=== PATIENT | female | born 1960 | race Caucasian/White ===

== ENCOUNTER 2017-12-22 12:13 | Inpatient (IN) | payer OTHER ==
[~2017-12-22 12:13] MED LIST: SUCCINYLCHOLINE CHLORIDE 100 MG/5 ML SYG IV
[2017-12-22] MEDS: VANCOMYCIN 1 GM 250 ML IVPB (13:43)
[2017-12-22] MEDS ORDERED: BISACODYL 10 MG SUPP PR (14:30)
[2017-12-22] MEDS ORDERED: VANCOMYCIN 1 GM (PMX) 250 ML IVPB (14:30)
[2017-12-22] MEDS ORDERED: NALOXONE (0.4 MG/ML) INJ IV (14:30)
[2017-12-22] MEDS ORDERED: AL HYDROX/MG HYDROX/SIMETH 30 ML CUP PO (14:30)
[2017-12-22] MEDS: VENLAFAXINE 75 MG TABLET PO (14:30)
[2017-12-22] MEDS: TOPIRAMATE 100 MG TAB PO ×2 (14:30→21:33)
[2017-12-22] MEDS ORDERED: CEPASTAT LOZENGE MT (14:30)
[2017-12-22] MEDS ORDERED: ONDANSETRON 4 MG INJ IV (14:30)
[2017-12-22] MEDS ORDERED: DIPHENHYDRAMINE 50 MG INJ IV (14:30)
[2017-12-22] MEDS ORDERED: GELATIN SIZE 100 SPONGE (14:35)
[2017-12-22] MEDS ORDERED: GLYCOPYRROLATE 0.4 MG INJ (14:58)
[2017-12-22] MEDS ORDERED: DEXAMETHASONE 4 MG/ML 1 ML INJ (14:58)
[2017-12-22] MEDS ORDERED: PROPOFOL 20 ML (14:58)
[2017-12-22] MEDS ORDERED: ROCURONIUM 50 MG INJ (14:58)
[2017-12-22] MEDS ORDERED: NEOSTIGMINE 3 MG/3 ML SYRINGE (14:58)
[2017-12-22] MEDS ORDERED: MIDAZOLAM 1 MG/ML 2 ML INJ (14:58)
[2017-12-22] MEDS ORDERED: ONDANSETRON 4 MG INJ (14:58)
[2017-12-22] MEDS ORDERED: CEFAZOLIN 1 GM INJ (14:58)
[2017-12-22] MEDS ORDERED: LABETALOL HCL 20MG INJ (15:30)
[2017-12-22] MEDS: BUPIVACAINE 0.25%/EPI (SDV) 30 ML INJ (15:54)
[2017-12-22] MEDS: CA CHLORIDE 10% 10 ML SYRINGE (15:54)
[2017-12-22] MEDS: THROMBIN 5000 UNIT VIAL (15:55)
[2017-12-22] MEDS: HEPARIN 1000 UNITS/ML 10 ML INJ (15:55)
[2017-12-22] MEDS: SURGIFOAM POWDER 1 GM KIT (15:55)
[2017-12-22] MEDS: POLYMYXIN/BACITRACIN 1L IRRIG IRR (15:56)
[2017-12-22] MEDS ORDERED: ALBUTEROL 0.083% (NEB) 2.5 MG/3 ML AMP HHN (16:00)
[2017-12-22] MEDS ORDERED: hydrALAzine 20 MG INJ IV (16:00)
[2017-12-22] MEDS ORDERED: IPRATROPIUM (NEB) 0.5 MG/2.5 ML AMP HHN (16:00)
[2017-12-22] MEDS ORDERED: LABETALOL HCL 20MG INJ IV (16:00)
[2017-12-22] MEDS ORDERED: HYDROmorphONE (0.2 MG/ML) 10ML SYG IV ×3 (16:00)
[2017-12-22] MEDS ORDERED: FENTAnyl 50 MCG/ML VIAL IV ×3 (16:00)
[2017-12-22] MEDS ORDERED: MIDAZOLAM 1 MG/ML 2 ML INJ IV (16:00)
[2017-12-22] MEDS ORDERED: MEPERIDINE 25 MG INJ IV (16:00)
[2017-12-22] MEDS ORDERED: TRIMETHOBENZAMIDE 100 MG/ML VIAL IM (16:00)
[2017-12-22] MEDS ORDERED: EPHEDrine SULFATE 50 MG/5 ML SYG IV (16:00)
[2017-12-22] MEDS ORDERED: SUGAMMADEX SODIUM 200 MG/2 ML VIAL IV (16:36)
[2017-12-22] MEDS: LACTATED RINGER'S 1,000 ML IV* (16:48)
[2017-12-22] MEDS: DIPHENHYDRAMINE 50 MG INJ IV (16:53)
[2017-12-22] MEDS: HYDROmorphONE 0.2 MG/ML PCA IV ×2 (16:56→22:12)
[2017-12-22] MEDS: ONDANSETRON 4 MG INJ IV (17:09)
[2017-12-22] MEDS: ACETAMINOPHEN 325 MG TAB PO (17:10)
[2017-12-22] MEDS ORDERED: [UNRECOGNIZED DRUG - REMARK] XX (18:00)
[2017-12-22] MEDS: D5W-0.45 NACL + KCL 20 MEQ 1,000 ML IV (18:39)
[2017-12-22] MEDS: CARISOPRODOL 350 MG TAB PO (20:10)
[2017-12-22] MEDS: traZODone 100 MG TAB PO ×2 (21:00→21:34)
[2017-12-22] MEDS: VENLAFAXINE (XR) 75 MG CAP PO (21:33)
[2017-12-22] MEDS: QUETIAPINE 100 MG TAB PO (21:34)
[2017-12-22] MEDS: DOCUSATE SODIUM 100 MG CAP PO (21:34)
[2017-12-22] MEDS: oxyCODONE (CR) 15 MG TAB [oxyCONTIN] PO (21:34)
[2017-12-23] MEDS: D5W-0.45 NACL + KCL 20 MEQ 1,000 ML IV ×3 (00:03→20:03)
[2017-12-23] MEDS ORDERED: VANCOMYCIN 1 GM (PMX) 250 ML IVPB (01:00)
[2017-12-23] MEDS: HYDROmorphONE 0.2 MG/ML PCA IV (03:31)
[2017-12-23] MEDS: CARISOPRODOL 350 MG TAB PO ×2 (04:55→12:30)
[2017-12-23 05:07] LABS: ADD MAN DIFF? NO
[2017-12-23 05:12] LABS: BASOPHILS % 0.1 % (0.0-2.0); HEMATOCRIT 38.6 % (37.0-47.0); HEMOGLOBIN 13.1 g/dl (12.0-16.0); LYMPHOCYTES # 1.3 10^3/ul (0.8-2.9); LYMPHOCYTES % 8.8 % (15.0-51.0); MEAN CORPUSCULAR HEMOGLOBIN 31.5 pg (29.0-33.0); MEAN CORPUSCULAR HGB CONC 33.9 g/dl (32.0-37.0); MEAN CORPUSCULAR VOLUME 92.8 fl (82.0-101.0); MEAN PLATELET VOLUME 8.6 fl (7.4-10.4); MONOCYTE # 1.1 10^3/ul (0.3-0.9); MONOCYTES % 7.7 % (0.0-11.0); NEUTROPHILS % 82.9 % (39.0-77.0); PLATELET COUNT 303 10^3/UL (140-415); RED BLOOD COUNT 4.16 10^6/ul (4.20-5.40); RED CELL DISTRIBUTION WIDTH 12.9 % (11.5-14.5)
[2017-12-23 05:12] LABS: WHITE BLOOD COUNT 14.5 10^3/ul (4.8-10.8)
[2017-12-23 05:25] LABS: ANION GAP 17 (8-16); BLOOD UREA NITROGEN 10 mg/dl (7-20); CALCIUM 8.8 mg/dl (8.4-10.2); CARBON DIOXIDE 22 mmol/L (21-31); CHLORIDE 109 mmol/L (97-110); CREATININE 0.79 mg/dl (0.44-1.00); GLUCOSE 127 mg/dl (70-220); POTASSIUM 4.2 mmol/L (3.5-5.1); SODIUM 144 mmol/L (135-144)
[2017-12-23] MEDS: LEVOTHYROXINE 112 MCG TAB PO (06:05)
[2017-12-23] MEDS: QUETIAPINE 100 MG TAB PO ×2 (08:53→20:32)
[2017-12-23] MEDS: DOCUSATE SODIUM 100 MG CAP PO ×2 (08:53→20:32)
[2017-12-23] MEDS: TOPIRAMATE 100 MG TAB PO ×2 (08:54→20:31)
[2017-12-23] MEDS: CYANOCOBALAMIN 500 MCG TAB PO (08:54)
[2017-12-23] MEDS: oxyCODONE (CR) 15 MG TAB [oxyCONTIN] PO ×2 (08:54→20:32)
[2017-12-23] MEDS ORDERED: VENLAFAXINE (XR) 75 MG CAP PO (09:00)
[2017-12-23] MEDS: OXYCODONE/ACETAMINOPHEN (10/325) TAB PO (13:45)
[2017-12-23] MEDS: CHOLECALCIFEROL 2,000 UNIT CAP GTB (13:45)
[2017-12-23] MEDS: KETOROLAC 30 MG INJ IV (17:38)
[2017-12-23] MEDS: traZODone 100 MG TAB PO ×2 (20:32→20:33)
[2017-12-23] MEDS: VENLAFAXINE (XR) 75 MG CAP PO (20:32)
[2017-12-24] MEDS: OXYCODONE/ACETAMINOPHEN (10/325) TAB PO ×4 (02:06→23:32)
[2017-12-24 05:16] LABS: ADD MAN DIFF? NO
[2017-12-24] MEDS: LEVOTHYROXINE 112 MCG TAB PO (05:19)
[2017-12-24] MEDS: CARISOPRODOL 350 MG TAB PO ×2 (05:19→14:56)
[2017-12-24] MEDS: D5W-0.45 NACL + KCL 20 MEQ 1,000 ML IV ×2 (05:21→16:03)
[2017-12-24 05:26] LABS: BASOPHIL # 0.1 10^3/ul (0.0-0.1); BASOPHILS % 0.4 % (0.0-2.0); EOSINOPHILS # 0.1 10^3/ul (0.0-0.5); EOSINOPHILS % 1.1 % (0.0-7.0); HEMATOCRIT 39.9 % (37.0-47.0); HEMOGLOBIN 13.5 g/dl (12.0-16.0); LYMPHOCYTES # 2.3 10^3/ul (0.8-2.9); LYMPHOCYTES % 18.6 % (15.0-51.0); MEAN CORPUSCULAR HGB CONC 33.8 g/dl (32.0-37.0); MEAN CORPUSCULAR VOLUME 94.5 fl (82.0-101.0); MEAN PLATELET VOLUME 8.9 fl (7.4-10.4); MONOCYTE # 1.3 10^3/ul (0.3-0.9); MONOCYTES % 10.6 % (0.0-11.0); NEUTROPHIL # 8.5 10^3/ul (1.6-7.5); NEUTROPHILS % 68.8 % (39.0-77.0); PLATELET COUNT 283 10^3/UL (140-415); RED BLOOD COUNT 4.22 10^6/ul (4.20-5.40); RED CELL DISTRIBUTION WIDTH 13.1 % (11.5-14.5)
[2017-12-24 05:26] LABS: WHITE BLOOD COUNT 12.3 10^3/ul (4.8-10.8)
[2017-12-24 05:40] LABS: ANION GAP 14 (8-16); BLOOD UREA NITROGEN 10 mg/dl (7-20); CALCIUM 8.5 mg/dl (8.4-10.2); CARBON DIOXIDE 21 mmol/L (21-31); CHLORIDE 113 mmol/L (97-110); CREATININE 0.89 mg/dl (0.44-1.00); GLUCOSE 129 mg/dl (70-220); PHOSPHORUS 1.6 mg/dl (2.5-4.9); POTASSIUM 4.1 mmol/L (3.5-5.1); SODIUM 144 mmol/L (135-144)
[2017-12-24] MEDS: CHOLECALCIFEROL 2,000 UNIT CAP GTB (08:49)
[2017-12-24] MEDS: DOCUSATE SODIUM 100 MG CAP PO ×2 (08:49→20:17)
[2017-12-24] MEDS: oxyCODONE (CR) 15 MG TAB [oxyCONTIN] PO ×2 (08:49→20:20)
[2017-12-24] MEDS: QUETIAPINE 100 MG TAB PO ×2 (08:50→20:17)
[2017-12-24] MEDS: CYANOCOBALAMIN 500 MCG TAB PO (08:50)
[2017-12-24] MEDS: TOPIRAMATE 100 MG TAB PO ×2 (08:50→20:17)
[2017-12-24] MEDS: SODIUM PHOSPHATE 30 MMOL in SOD CHLORIDE 0.9% 250 ML IVPB (09:47)
[2017-12-24] MEDS: traZODone 100 MG TAB PO ×2 (20:17→20:21)
[2017-12-24] MEDS: VENLAFAXINE (XR) 75 MG CAP PO (20:17)
[2017-12-25] MEDS: CARISOPRODOL 350 MG TAB PO ×2 (00:56→11:23)
[2017-12-25] MEDS: D5W-0.45 NACL + KCL 20 MEQ 1,000 ML IV ×2 (01:05→12:03)
[2017-12-25] MEDS: OXYCODONE/ACETAMINOPHEN (10/325) TAB PO ×3 (04:31→15:23)
[2017-12-25 05:30] LABS: ADD MAN DIFF? NO
[2017-12-25 05:38] LABS: BASOPHIL # 0.1 10^3/ul (0.0-0.1); BASOPHILS % 0.5 % (0.0-2.0); EOSINOPHILS # 0.3 10^3/ul (0.0-0.5); EOSINOPHILS % 2.2 % (0.0-7.0); HEMATOCRIT 41.4 % (37.0-47.0); HEMOGLOBIN 13.9 g/dl (12.0-16.0); LYMPHOCYTES # 3.4 10^3/ul (0.8-2.9); LYMPHOCYTES % 28.5 % (15.0-51.0); MEAN CORPUSCULAR HGB CONC 33.6 g/dl (32.0-37.0); MEAN CORPUSCULAR VOLUME 95.4 fl (82.0-101.0); MEAN PLATELET VOLUME 8.9 fl (7.4-10.4); MONOCYTE # 0.8 10^3/ul (0.3-0.9); NEUTROPHIL # 7.3 10^3/ul (1.6-7.5); NEUTROPHILS % 61.2 % (39.0-77.0); PLATELET COUNT 322 10^3/UL (140-415); RED BLOOD COUNT 4.34 10^6/ul (4.20-5.40); RED CELL DISTRIBUTION WIDTH 12.8 % (11.5-14.5)
[2017-12-25 05:38] LABS: WHITE BLOOD COUNT 11.9 10^3/ul (4.8-10.8)
[2017-12-25] MEDS: LEVOTHYROXINE 112 MCG TAB PO (05:51)
[2017-12-25 06:02] LABS: ANION GAP 15 (8-16); BLOOD UREA NITROGEN 8 mg/dl (7-20); CALCIUM 8.9 mg/dl (8.4-10.2); CARBON DIOXIDE 20 mmol/L (21-31); CHLORIDE 112 mmol/L (97-110); CREATININE 0.87 mg/dl (0.44-1.00); GLUCOSE 116 mg/dl (70-220); MAGNESIUM 2.1 mg/dl (1.7-2.5); PHOSPHORUS 3.3 mg/dl (2.5-4.9); POTASSIUM 3.9 mmol/L (3.5-5.1); SODIUM 143 mmol/L (135-144)
[2017-12-25] MEDS: HYDROmorphONE 0.5 MG/0.5 ML SYG IV (06:30)
[2017-12-25] MEDS: oxyCODONE (CR) 15 MG TAB [oxyCONTIN] PO (08:56)
[2017-12-25] MEDS: DOCUSATE SODIUM 100 MG CAP PO (08:57)
[2017-12-25] MEDS: QUETIAPINE 100 MG TAB PO (08:57)
[2017-12-25] MEDS: CHOLECALCIFEROL 2,000 UNIT CAP GTB (08:58)
[2017-12-25] MEDS: CYANOCOBALAMIN 500 MCG TAB PO (08:58)
[2017-12-25] MEDS: TOPIRAMATE 100 MG TAB PO (08:58)
== END 2017-12-25 16:09 | disposition home or self-care (01) | DRG 520 ==
LOC: REC 12:13 → MS1 18:00
PROC: 0SB40ZZ Excision of Lumbosacral Disc, Open Approach (ICD-10-PCS; principal; 2017-12-22 14:51)
DX: M51.27 Other intervertebral disc displacement, lumbosacral region (principal); M41.86 Other forms of scoliosis, lumbar region; M51.26 Other intervertebral disc displacement, lumbar region; G89.29 Other chronic pain; Z88.0 Allergy status to penicillin; Z88.2 Allergy status to sulfonamides
CPT/HCPCS: 72020; 80048; 83735; 84100; 85025; 86999; 97110; 97116; 97164; 97530